=== PATIENT | male | born 1990 | race Caucasian/White ===

== ENCOUNTER 2021-07-17 21:54 | Emergency (ER) | payer MEDICAID, SELFPAY ==
[2021-07-17 21:55] VITALS: BP 136/91; PULSE 85; RESP 18; TEMP 36.7; O2SAT 97; BMI 43.8
[2021-07-17 23:53] VITALS: BP 154/66; PULSE 84; RESP 14; O2SAT 96
[2021-07-18] VITALS (14 sets, daily range): BP systolic 114–179; BP diastolic 61–93; PULSE 73–103; RESP 18–30; O2SAT 88–95
--- NOTE | 2021-07-18 00:50 | EDS_ITS ---
HPI HPI - GI History of Present Illness Chief Complaint: Foreign Body Informant: patient and parent Abdominal Pain/Flank Pain Onset: Today (Ate chicken at noon and has not been able to swallow his secretions.) Context: Sudden Onset Timing: Continuous Quality: Aching Location: Epigastric Current Severity: Mild Maximum Severity: Moderate Worsened by: Food Relieved by: Nothing Nausea/Vomiting/Emesis GI Symptom: Negative for Nausea and Vomiting Diarrhea/Melena/Hematochezia GI Symptom: Negative for Diarrhea, Melena and Hematochezia Associated Symptoms Associated Symptoms: Negative for Dysuria, Frequency and Hematuria Narrative Narrative: Patient is a 30-year-old with autism. He has prior history of esophageal obstruction due to food bolus. He was eating chicken. He has not been able to swallow his own secretions. He would not drink water to document he is unable to swallow. Mother states this happened before. He has no other complaints. History is limited because he has autism. The primary informant was the mother. Prior similar symptoms: Yes Recent Illness/Hospitalization: No PFSH PFSH Home Medications azithromycin 250 mg PO DAILY #4 tablet 05/13/15 [Rx Last Taken Unknown] omeprazole 40 mg PO DAILY #14 cap 07/18/21 [Rx Last Taken Unknown] Allergy/AdvReac Type Severity Reaction Status Date / Time amoxicillin trihydrate AdvReac Diarrhea Verified 07/17/21 21:58 [From Augmentin] potassium clavulanate AdvReac Diarrhea Verified 07/17/21 21:58 [From Augmentin] Surgical History (Updated 07/18/21 @ 00:[address] Antoni Avelar MD) History of esophagogastroduodenoscopy (EGD) History of tympanoplasty Social History (Updated 07/18/21 @ 00:[address] Antoni Avelar MD) household members: family Smoking Status: Never smoker alcohol intake: never substance use type: does not use ROS ROS ED Review of Systems ROS Unobtainable: due to mental status EXAM Physical Exam Const Vital Signs: 07/17/21 21:55 07/17/21 23:53 07/17/21 23:56 Temperature 98.0 F Temperature Source Temporal Pulse Rate 85 84 Respiratory Rate 18 14 Respiratory Effort Normal Respiratory Pattern Normal Blood Pressure 136/91 H 154/66 H Blood Pressure Mean 106 Pulse Ox 97 96 Oxygen Delivery Method Room Air Room Air Positive well nourished, well developed and obese General Appearance ED: well developed Nutritional Appearance: obese HEENT Reports TM's clear and moist mucous membranes normocephalic and atraumatic Tympanic Membrane ED: Yes TM's clear Eyes PERRL and EOMs intact bilaterally General Eye ED: Negative for pale conjunctiva or scleral icterus Neck no lymphadenopathy, supple and no JVD Neck Narrative: Trachea is midline. There is no inspiratory expiratory stridor. Resp normal respiratory effort and clear to auscultation bilaterally Cardio regular rate, regular rhythm, S1 normal heart sound, S2 normal heart sound and no murmurs GI non-tender and no masses Auscultation: normoactive bowel sounds Palpation: soft Back/Spine no CVA tenderness Extremity full ROM General Extremety ED: Negative for edema or tenderness General Extremity: Negative for edema Neuro Sensorium / Orientation: alert Psych mental status grossly normal Skin Lesions: no lesions Rashes: no rashes MDM MDM MDM Narrative Medical decision making narrative: Patient with esophageal obstruction due to meat food bolus. Dr. Jones was contacted for EGD to alleviate the obstruction. Plan was EGD by Dr. Jones and deep sedation by me. Dr. Jones is requesting intubation followed by deep sedation. He is concerned patient will fight and is not cooperative. Procedures Other Procedures Procedure(s): 1 intubation by RSI 2 deep sedation for EGD Since patient is autistic mother was informed of risk benefits of deep sedation using propofol. She consented. She states she is undergone deep sedation for prior esophageal obstruction due to meat food bolus. She states he does not have allergy to egg products or soy products. His only past medical history is autism. After discussion with endoscopist he requested intubation because patient is autistic and not cooperative. Patient was intubated after receiving 20 mils etomidate and 100 mils succinylcholine. He was placed on a nonrebreather. Lowest pulse ox reading was 98%. Patient was easily orotracheally debated with a 7.5 endotracheal tube. There is appropriate color change noted. Breath sounds were noted bilaterally. There was no sounds noted over the epigastrium. Patient required 50 mg of propofol. EGD was performed by Dr. Jones. Start time 0104 End time 0115. Patient was breathing on his own and able to control secretions when I left the room. Mother was informed of results by Dr. Jones. Patient had no complications from intubation or deep sedation. Rhythm strip noted at the beginning of procedure was sinus with a ventricular rate of 92. After the patient patient was in a normal sinus with no ectopy and ventricular rate of 97. At the end of the procedure sinus rhythm with a ventri cular rate of 94 without ectopy. Discharge Plan Triage Chief Complaint: Foreign Body ED Provider: Antoni Avelar Dx/Rx/DC Orders Clinical Impression: Esophageal obstruction due to food impaction Instructions: ED Esophageal Foreign Body, Resolved Prescriptions: New omeprazole 40 mg capsule,delayed release(DR/EC) 40 mg PO DAILY Qty: 14 RF: 0 No Action azithromycin 250 MG tablet 250 mg PO DAILY Qty: 4 RF: 0 Primary Care Provider: Montana Soliatrio Referrals: Montana Solitario MD [Primary Care Provider] - 1-2 Weeks Disposition Disposition: Home, Self Care
[2021-07-18] MEDS: Etomidate 20 MG/10 ML Vial IV (01:05)
--- NOTE | 2021-07-18 01:05 | CPS ---
Patient extubated after sedation wore off. Patient did not aspirate and was extubated with no complications.
[2021-07-18] MEDS: Propofol 200 MG/20 ML Vial IV BOLUS (01:08)
--- NOTE | 2021-07-18 01:19 | OP.EGD_ITS ---
Patient Name: Raleigh San Procedure Date: 07/18/2021 12:50 AM Date of : 1990 Age: 30 Procedure: Upper GI endoscopy Indications: Foreign body in the esophagus Providers: London Jones MD Medicines: General Anesthesia Patient Profile: This is a 30 year old male. Refer to note in patient chart for documentation of history and physical. Complications: No immediate complications. Procedure: Pre-Anesthesia Assessment: - Prior to the procedure, a History and Physical was performed, and patient medications and allergies were reviewed. The patient's tolerance of previous anesthesia was also reviewed. The risks and benefits of the procedure and the sedation options and risks were discussed with the patient. All questions were answered, and informed consent was obtained. Prior Anticoagulants: The patient has taken no previous anticoagulant or antiplatelet agents. ASA Grade Assessment: III - A patient with severe systemic disease. After reviewing the risks and benefits, the patient was deemed in satisfactory condition to undergo the procedure. After obtaining informed consent, the endoscope was passed under direct vision. Throughout the procedure, the patient's blood pressure, pulse, and oxygen saturations were monitored continuously. The gastroscope was introduced through the mouth, and advanced to the duodenal bulb. The upper GI endoscopy was accomplished without difficulty. The patient tolerated the procedure well. Scope In: 1:07:05 AM Scope Out: 1:09:11 AM Total Procedure Duration Time 0 hours 2 minutes 6 seconds Findings: Food was found in the lower third of the esophagus. Removal of food was accomplished. The entire examined stomach was normal. No biopsies or other specimens were collected for this exam. The duodenal bulb was normal. Impression: - Food in the lower third of the esophagus. Removal was successful. - Normal stomach. No specimens collected. - Normal duodenal bulb. Recommendation: - Discharge patient to home. - Advance diet as tolerated. - Continue present medications. - Repeat upper endoscopy PRN for surveillance. - Return to primary care physician in 1 week. Procedure Code(s): --- Professional --- 22703, Esophagogastroduodenoscopy, flexible, transoral; with removal of foreign body(s) Diagnosis Code(s): --- Professional --- T18.128A, Food in esophagus causing other injury, initial encounter T18.108A, Unspecified foreign body in esophagus causing other injury, initial encounter CPT copyright 2017 [employer]. All rights reserved. The codes documented in this report are preliminary and upon medical records coder review may be revised to meet current compliance requirements. MD London Faustin MD 07/18/2021 1:18:27 AM This report has been signed electronically. Number of Addenda: 0 Note Initiated On: 07/18/2021 12:50 AM
--- NOTE | 2021-07-18 01:19 | OP.CCLET_ITS ---
07/18/2021 Montana Solitario Re : Upper GI endoscopy procedure for Raleigh San Dear Altaf This procedure was performed on Sunday, July 18, 2021. My impressions and recommendations are as follows: Impressions : - Food in the lower third of the esophagus. Removal was successful. - Normal stomach. No specimens collected. - Normal duodenal bulb. Recommendations : - Discharge patient to home. - Advance diet as tolerated. - Continue present medications. - Repeat upper endoscopy PRN for surveillance. - Return to primary care physician in 1 week. My findings are described in the full procedure note, which is enclosed. If I can be of further assistance, please feel free to contact me at Doctor phone number(s): , Fax: [phone], Work: . Sincerely, MD London Faustin MD 07/18/2021 1:18:27 AM This report has been signed electronically.
--- NOTE | 2021-07-18 01:25 | ED.RN ---
patient intubated at 0105 for procedure. patient extubated at 0114 when procedure completed.
--- NOTE | 2021-07-18 05:31 | RAD_ITS ---
HISTORY: cough EXAMINATION/TECHNIQUE: XR Chest 2 Views: 3 image PA and lateral chest COMPARISON: May 13, 2015 FINDINGS: LINES/DEVICES: None. LUNGS: Large airspace consolidation within the right lower lobe No gross left lung consolidation. Mild right greater left perihilar and basilar interstitial thickening. No effusion. No pneumothorax. MEDIASTINUM: No cardiomegaly. MUSCULOSKELETAL: No acute osseous finding. RAD/Chest PA and Lateral IMPRESSION: Findings concerning for right lower lobe pneumonia. at 0723 Reported and signed by: Sj Vieira MD Electronically Signed: Sj Vieira MD at 7:21 EDT Tel , Service support ,
--- NOTE | 2021-07-18 08:07 | NURSING ---
CALLED [facility], TOLD BY EVY HE IS AN ER TO ER TRANSFER.
[2021-07-18] MEDS: Clindamycin HCl 150 MG Capsule 300 MG PO (08:12)
== END 2021-07-18 08:12 | disposition home or self-care (01) ==
PROVIDERS: Surgery; Emergency Provider Emergency Medicine; PCP Family Medicine
PROC: 0DJ08ZZ Inspection of Upper Intestinal Tract, Via Natural or Artificial Opening Endoscopic (ICD-10-PCS; CPT 43235; principal; 2021-07-18 00:25)
DX: T18.128A Food in esophagus causing other injury, initial encounter (principal); K22.2 Esophageal obstruction; X58.XXXA Exposure to other specified factors, initial encounter; Y93.9 Activity, unspecified; Y92.9 Unspecified place or not applicable; Y99.9 Unspecified external cause status; F84.0 Autistic disorder; E66.9 Obesity, unspecified; Z79.899 Other long term (current) drug therapy
CPT/HCPCS: 43247; 31500; 71046; 99251; 99285; J7030; A4216; G0463

== ENCOUNTER 2023-01-21 14:02 | Emergency (ER) | payer MEDICAID, SELFPAY ==
[2023-01-21 14:04] VITALS: BP 154/81; PULSE 88; RESP 18; TEMP 35.8; O2SAT 98; BMI 45.4
--- NOTE | 2023-01-21 15:44 | ED.VIS.GI ---
HPI HPI - GI History of Present Illness Chief Complaint: Nausea/Vomiting Informant: patient and parent Nausea/Vomiting/Emesis GI Symptom: Positive for Nausea and Vomiting Quality: Positive for Nonbilious Severity: Mild Episodes: 1 Diarrhea/Melena/Hematochezia GI Symptom: Negative for Diarrhea, Melena or Hematochezia Associated Symptoms Associated Symptoms: Negative for Dysuria, Frequency, Hematuria or Urgency Narrative Narrative: 32-year-old autistic male no other significant past medical history. No prior abdominal surgeries. Mom he threw up 1 time today at workshop. Otherwise he is felt well. No fever. No diarrhea. No abdominal pain. Patient states his symptoms have resolved and he feels fine currently. The workshop setting to the urgent care in the urgent care center in the emergency department. States at times he has trouble with food textures and he has nausea and vomiting. Prior similar symptoms: Yes Recent Illness/Hospitalization: No PFSH PFSH Home Medications azithromycin 250 mg tablet 250 mg PO DAILY ##4 05/13/15 [Rx Last Taken Unknown] clindamycin HCl 300 mg capsule (Cleocin HCl) 300 mg PO Q6H #40 caps 07/18/21 [Rx Last Taken Unknown] omeprazole 40 mg capsule,delayed release 40 mg PO DAILY #14 caps 07/18/21 [Rx Last Taken Unknown] Allergy/AdvReac Type Severity Reaction Status Date / Time amoxicillin trihydrate AdvReac Diarrhea Verified 01/21/23 14:03 [From Augmentin] potassium clavulanate AdvReac Diarrhea Verified 01/21/23 14:03 [From Augmentin] Surgical History History of esophagogastroduodenoscopy (EGD) History of tympanoplasty Social History household members: family Smoking Status: Never smoker alcohol intake: never substance use type: does not use ROS ROS ED ROS Narrative Nausea and vomiting x1. Review of Systems ROS Unobtainable: Denies due to encephalopathy Constitutional Constitutional ED: Denies chills or fever(s) ENT ENT ED: Denies ear pain Cardiovascular Cardiovascular: Denies chest pain Respiratory/Chest Respiratory/Chest: Denies cough or dyspnea Gastrointestinal Gastrointestinal: Reports nausea and vomiting; Denies abdominal pain, constipation, diarrhea or melena Genitourinary Genitourinary ED: Denies dysuria or hematuria Musculoskeletal Musculoskeletal: Denies arthralgias Integumentary Denies abscess Neurologic Neurologic: Denies headache(s) Psychiatric Psychiatric: Denies anxiety Endocrine Endocrinology: Denies polydipsia Hematologic/Lymphatic Hematologic/Lymphatic: Denies easy bleeding Allergic/Immunologic Allergic/Immunologic ED: Denies mouth swelling or tongue swelling EXAM Physical Exam Narrative Exam Narrative: 32-year-old male no acute distress. Vital signs are stable afebrile. Initial blood pressure 151/81. H EENT exam unremarkable. Moist weeks membranes. Neck nontender. No lymphadenopathy. Lungs clear to auscultation bilaterally. Heart regular rhythm rate about 85 no murmur. Chest wall nontender. Abdomen soft nontender. No peritoneal signs. No right upper or right lower quadrant tenderness. No signs of obstruction. Normal bowel sounds. Moving all 4 extremities. Nontender. No edema. Back nontender. Neurologically is awake and alert. No focal motor deficits. Mom present in the room. Const Vital Signs: 01/21/23 14:04 Temperature 96.5 F L Temperature Source Temporal Pulse Rate 88 Respiratory Rate 18 Blood Pressure 154/81 H Blood Pressure Mean 105 Pulse Ox 98 Oxygen Delivery Method Room Air Positive well nourished, well developed and obese; Negative for cachectic, contractures or unkempt General Appearance ED: well developed; Negative for unkempt, cachectic, contractures or pallor Nutritional Appearance: obese; Negative for cachectic HEENT Reports moist mucous membranes normocephalic and atraumatic; Negative for trauma or tenderness Eyes PERRL and EOMs intact bilaterally General Eye ED: Negative for pale conjunctiva, scleral icterus or other Neck no lymphadenopathy, supple and no JVD General: Negative for tenderness Carotids: Negative for other Lymph Lymphatic: Negative for other Resp normal respiratory effort and clear to auscultation bilaterally Effort and Inspection: Negative for respiratory distress Auscultation: Negative for rales, rhonchi or wheezes Cardio regular rate, regular rhythm, S1 normal heart sound, S2 normal heart sound and no murmurs GI non-tender, non-distended and no masses Inspection: Negative for abdominal distention Auscultation: normoactive bowel sounds Palpation: soft; Negative for tender or guarding Back/Spine no CVA tenderness General Back: Negative for CVA tenderness Cervical Spine: Negative for cervical spine tenderness Thoracic Spine / Upper Back: Negative for thoracic spinal tenderness Lumbar Spine / Lower Back: Negative for lumbar spinal tenderness Extremity full ROM General Extremety ED: Negative for edema or tenderness General Extremity: Negative for edema Neuro CN's II-XII intact bilaterally and moves all extremities Sensorium / Orientation: alert, oriented to person and oriented to place; Negative for confused, lethargic or stuporous Motor Exam: strength 5/5 throughout Psych mental status grossly normal Appearance: Negative for unkempt Attitude: No agitated Mood & Affect: Negative for depressed, anxious or tearful Skin no wounds General Skin Exam: Negative for jaundice or pallor Lesions: no lesions Rashes: no rashes Trauma: Negative for abrasion Nails: Negative for discolored MDM MDM MDM Narrative Medical decision making narrative: 32-year-old to stick male had nausea and vomiting times once at workshop today. He has no complaints at this time. His abdomen is benign. His nausea is resolved. He does not need any lab work-up or imaging. Clinically looks well. He will be discharged home with 1 dose of Zofran as needed for nausea. He may return to [facility] tomorrow. Discharge Plan Triage Chief Complaint: Nausea/Vomiting ED Provider: Evert Yepez Dx/Rx/DC Orders Clinical Impression: Autism, Vomiting Instructions: ED Vomiting (Adult) Prescriptions: No Action azithromycin 250 MG tablet 250 mg PO DAILY Qty: 4 0RF omeprazole 40 mg capsule,delayed release(DR/EC) 40 mg PO DAILY Qty: 14 0RF clindamycin HCl [Cleocin HCl] 300 mg capsule 300 mg PO Q6H Qty: 40 0RF Primary Care Provider: Montana Solitario Referrals: Cisco Nguyen DO [Med Staff - [employer]] - As Needed Montana Solitario MD [Primary Care Provider] - Activity Restrictions/Additional Instructions: Zofran only if needed if he gets nauseated. Follow-up with your doctor as needed. He may go back to [facility] tomorrow. Disposition Disposition: Home, Self Care
[2023-01-21] MEDS: Ondansetron ODT 4 MG Tablet PO (15:54)
[2023-01-21 15:56] VITALS: BP 135/72; PULSE 64; RESP 18; O2SAT 98
== END 2023-01-21 15:57 | disposition home or self-care (01) ==
LOC: ED 15:45
PROVIDERS: Emergency Provider Emergency Medicine; Visit Provider Emergency Medicine
DX: R11.2 Nausea with vomiting, unspecified (principal); F84.0 Autistic disorder; E66.9 Obesity, unspecified
CPT/HCPCS: 99283

== ENCOUNTER 2024-02-21 03:15 | Day surgery (SDC) | payer MEDICAID, SELFPAY ==
[2024-02-21] VITALS (11 sets, daily range): BP systolic 133–172; BP diastolic 86–112; PULSE 78–116; RESP 16–18; TEMP 35.8–36.8; O2SAT 96–100; BMI 45.3
--- NOTE | 2024-02-21 | ESO_PTH ---
PATIENT: THOMAS SANFORD LOC: EN U#:[id number] AGE/SX: 33/M ROOM: RE02/21/[address]: Dr. Jamel Richey DO : 1990 BED: DIS: 02/21/2024 SPEC #: [id number] RECD: 02/21/24 11:41 STATUS: ZOEY VALARIE #: [id number] HAYDEE: 02/21/24 00:[address]: Jamel Richey DEPT: SURGICAL PATHOLOGY RECD BY: Luisito Ruvalcaba ENTERED: 02/21/24 11:41 SP TYPE: BERNABE BRENNER DR: Abril Primary Care Phys Tissues: Esophagus, NOS Procedures: Surgery Specimen Level IV HEADER OPERATION: EGD with removal of food bolus and biopsy PRE-OP DIAGNOSIS: Food impaction TISSUE SUBMITTED: Random esophagus biopsy MICROSCOPIC DIAGNOSIS Esophagus random, biopsy: Fragments of squamous mucosa with changes consistent with eosinophilic esophagitis. See comment. DENISE/mr 02/24/24 COMMENT Increased number of eosinophils (up to 20 per high power field) are noted. Correlation with clinical, endoscopic findings and appropriate follow up are necessary. MICROSCOPIC DESCRIPTION Slides are reviewed. GROSS DESCRIPTION Received in fixative is one container labeled with the patient's name and designated Random esophagus biopsy. The specimen consists of multiple irregular fragments of light hampton soft tissue that in aggregate measure 1.2 x 0.3 x 0.1 cm. The specimen is totally submitted in one cassette. DENISE/ 02/21/2024 TC:3 CPT: 03697
--- NOTE | 2024-02-21 03:34 | EDS_ITS ---
HPI History of Present Illness Chief Complaint: Foreign Body Informant: patient and parent Narrative Narrative: Patient presents with his mother secondary to concern for esophageal food obstruction. Patient reportedly was eating [place] fries around 11 PM last jazmin magan. Mother states he suddenly had a difficult time swallowing anything. When he tries to sip water he will vomit back up. He has been tolerating secretions okay. He did have an EGD performed in 2020 secondary to a food impaction in the distal third of his esophagus. [facility] Medical History Autism Home Medications NK 02/21/24 [History Last Taken Unknown] Allergy/AdvReac Type Severity Reaction Status Date / Time amoxicillin trihydrate AdvReac Diarrhea Verified 02/21/24 03:16 [From Augmentin] potassium clavulanate AdvReac Diarrhea Verified 02/21/24 03:16 [From Augmentin] Surgical History History of esophagogastroduodenoscopy (EGD) History of tympanoplasty Social History household members: family Smoking Status: Never smoker alcohol intake: never substance use type: does not use ROS ROS ED Constitutional Constitutional ED: Denies chills or fever(s) Eyes Eyes: Denies discharge from eye(s) ENT ENT ED: Denies discharge from eye(s), rhinorrhea or sore throat Cardiovascular Cardiovascular: Denies chest pain Respiratory/Chest Respiratory/Chest: Denies dyspnea Gastrointestinal Gastrointestinal: Reports vomiting; Denies abdominal pain, diarrhea or nausea Musculoskeletal Musculoskeletal: Denies back pain or extremity pain Integumentary Denies Abrasions or rash Neurologic Neurologic: Denies headache(s) or weakness Allergic/Immunologic Allergic/Immunologic ED: Denies lip swelling or urticaria EXAM Physical Exam Const Vital Signs: 02/21/24 03:17 02/21/24 03:21 Temperature 96.4 F L Temperature Source Temporal Pulse Rate 78 Respiratory Rate 16 Respiratory Effort Normal Respiratory Pattern Normal Blood Pressure 148/87 H Blood Pressure Mean 107 Pulse Ox 99 Oxygen Delivery Method Room Air Positive well nourished and well developed General Appearance ED: well developed HEENT Reports moist mucous membranes Eyes EOMs intact bilaterally Chest Wall inspection of chest normal and palpation of chest normal Resp normal respiratory effort and clear to auscultation bilaterally Cardio regular rate and regular rhythm GI non-tender Auscultation: hypoactive bowel sounds Palpation: soft Extremity normal to inspection Neuro Sensorium / Orientation: alert Motor Exam: strength 5/5 throughout Skin no rashes or lesions noted MDM MDM MDM Narrative Medical decision making narrative: IV line initiated. Patient given 1 mg of IV glucagon. After approximately 30 minutes I took the patient a small glass of water. After just a couple sips he vomited back up and was unable to keep anything down. I spoke with Dr. Richey, on-call for GI who will be in to see the patient with plan to go for EGD. Discharge Plan Triage Chief Complaint: Foreign Body ED Provider: Anny Santos Dx/Rx/DC Orders Clinical Impression: Food impaction of esophagus Prescriptions: No Action NK Primary Care Provider: Care Physician,No Primary Referrals: Care Physician,No Primary [Primary Care Provider] - Disposition Disposition: Acute Care Hospital [facility]
[2024-02-21] MEDS: Glucagon 1 MG/ML Syringe IV (03:35)
[2024-02-21] MEDS: 0.9% Normal Saline (1000mL) 1,000 ML 15 ML IV (06:15)
--- NOTE | 2024-02-21 07:15 | PCM.HP.STD ---
[facility] - General General Date of Admission: 02/21/24 Date of Service: 02/21/24 Chief Complaint: Food impaction HPI Narrative THOMAS SANFORD, is a 33 M who presents with inability to swallow. Patient presents with his mother secondary to concern for esophageal food obstruction. Patient reportedly was eating Arabic fries around 11 PM last evening. Mother states he suddenly had a difficult time swallowing anything. When he tries to sip water he will vomit back up. He has been tolerating secretions okay. He did have an EGD performed in 2020 secondary to a food impaction in the distal third of his esophagus. [facility] Medical History Autism Home Medications NK 02/21/24 [History Last Taken Unknown] Allergy/AdvReac Type Severity Reaction Status Date / Time amoxicillin trihydrate AdvReac Diarrhea Verified 02/21/24 06:59 [From Augmentin] potassium clavulanate AdvReac Diarrhea Verified 02/21/24 06:59 [From Augmentin] Surgical History History of esophagogastroduodenoscopy (EGD) History of tympanoplasty Social History household members: family Smoking Status: Never smoker alcohol intake: never substance use type: does not use ROS Review of Systems ROS Unobtainable: other Constitutional Constitutional: Reports other Details: Dysphagia ; Denies fatigue, fever(s), poor appetite, weight gain or weight loss ENT HEENT: Denies mouth lesions Cardiovascular Cardiovascular: Denies abdominal bloating, abdominal edema or abdominal pain Respiratory/Chest Respiratory/Chest: Denies change in mental status, change in phlegm color, chest congestion or chest tightness Gastrointestinal Gastrointestinal: Denies belching, bloating, change in bowel habits, change in stool character, chewing difficulty, coffee ground emesis, constipation, cramping, diarrhea, dyspepsia, dysphagia, early satiety, excessive flatus, fecal incontinence, heartburn, hematemesis, hematochezia, hemorrhoids, loose stools, melena, nausea, odynophagia, rectal bleeding, tenesmus, vomiting or weight changes Genitourinary Genitourinary: Denies abdominal discomfort, burning urination or itching Musculoskeletal Musculoskeletal: Reports as per HPI; Denies muscle weakness or myalgias Integumentary Integumentary: Denies jaundice Neurologic Neurologic: Denies lack of coordination or weakness Psychiatric Psychiatric: Denies confusion, depression, memory loss, mood swings, paranoia or suicidal ideation Endocrine Endocrinology: Denies systems reviewed and no addt'l complaints, except as documented Hematologic/Lymphatic Hematologic/Lymphatic: Denies anemia, easy bleeding, easy bruising or lymphadenopathy Allergic/Immunologic Allergic/Immunologic: Denies systems reviewed and no addt'l complaints, except as documented Vital Signs Vital Signs Vital Signs: 02/21/24 03:17 02/21/24 03:21 02/21/24 04:30 Temperature 96.4 F L Temperature Source Temporal Pulse Rate 78 86 Respiratory Rate 16 16 Respiratory Effort Normal Respiratory Pattern Normal Blood Pressure 148/87 H 133/96 H Blood Pressure Mean 107 108 Blood Pressure Source Blood Pressure Position Blood Pressure Location Pulse Ox 99 98 Oxygen Delivery Method Room Air Room Air 02/21/24 04:31 02/21/24 05:00 02/21/24 06:12 Temperature 98.2 F 97.4 F L Temperature Source Temporal Temporal Pulse Rate 89 79 86 Respiratory Rate 18 16 Respiratory Effort Respiratory Pattern Blood Pressure 133/96 H 134/89 H 136/86 H Blood Pressure Mean 108 104 102 Blood Pressure Source Monitor Blood Pressure Position Supine Blood Pressure Location Left Arm Pulse Ox 98 96 98 Oxygen Delivery Method Room Air Room Air Room Air 02/21/24 06:12 Temperature 97.8 F Temperature Source Pulse Rate 86 Respiratory Rate 16 Respiratory Effort Respiratory Pattern Blood Pressure 136/86 H Blood Pressure Mean 102 Blood Pressure Source Blood Pressure Position Blood Pressure Location Pulse Ox 98 Oxygen Delivery Method Weight Weight: 289 lb 3.944 oz Body Mass Index (BMI) 45.3 Physical Exam Const alert General Appearance: cooperative Orientation / Consciousness: oriented to person HEENT hearing grossly normal bilaterally Head and Scalp: normal to inspection Face and Sinus: face symmetric Nose: external nose normal Mouth: oral and palatal mucosa normal Eyes conjunctivae normal General Eye: normal appearance of both eyes Neck full ROM General: normal visual inspection Lymph Lymphatic: no lymphadenopathy noted Chest inspection of chest normal and palpation of chest normal Chest: symmetrical chest wall rise Resp normal respiratory effort Effort and Inspection: able to speak in complete sentences Cardio regular rate GI non-distended Percussion: normal to percussion Rectal Exam: deferred Neuro Speech: speech normal Gait (Neuro): normal gait Assessment & Plan Assessment/Plan (1) Food impaction of esophagus: PLAN: Patient will undergo EGD with foreign body removal. He was explained alternatives, risk, benefits including not withstanding bleeding, infection, sepsis, perforation, need for emergent urgent . Have an ASA of 2.
--- NOTE | 2024-02-21 07:38 | OP.EGD_ITS ---
Patient Name: Raleigh San Procedure Date: 02/21/2024 7:11 AM Date of : 1990 Age: 33 Procedure: Upper GI endoscopy Indications: Dysphagia Providers: Jamel Richey DO Medicines: Monitored Anesthesia Care Patient Profile: This is a 33 year old male. Refer to note in patient chart for documentation of history and physical. Patient has symptoms of dysphagia with both liquids and solids. Complications: No immediate complications. Procedure: Pre-Anesthesia Assessment: - Prior to the procedure, a History and Physical was performed, and patient medications and allergies were reviewed. The patient is competent. The risks and benefits of the procedure and the sedation options and risks were discussed with the patient. All questions were answered and informed consent was obtained. Patient identification and proposed procedure were verified by the physician in the pre-procedure area. Mental Status Examination: alert and oriented. Airway Examination: normal oropharyngeal airway and neck mobility. Respiratory Examination: clear to auscultation. CV Examination: normal. Prophylactic Antibiotics: The patient does not require prophylactic antibiotics. Prior Anticoagulants: The patient has taken no anticoagulant or antiplatelet agents. ASA Grade Assessment: II - A patient with mild systemic disease. After reviewing the risks and benefits, the patient was deemed in satisfactory condition to undergo the procedure. The anesthesia plan was to use monitored anesthesia care (MAC). Immediately prior to administration of medications, the patient was re-assessed for adequacy to receive sedatives. The heart rate, respiratory rate, oxygen saturations, blood pressure, adequacy of pulmonary ventilation, and response to care were monitored throughout the procedure. The physical status of the patient was re-assessed after the procedure. After obtaining informed consent, the endoscope was passed under direct vision. Throughout the procedure, the patient's blood pressure, pulse, and oxygen saturations were monitored continuously. The gastroscope was introduced through the mouth, and advanced to the duodenal bulb. The upper GI endoscopy was accomplished without difficulty. The patient tolerated the procedure well. Scope In: 7:26:19 AM Scope Out: 7:30:14 AM Total Procedure Duration Time 0 hours 3 minutes 55 seconds Findings: Mucosal changes including ringed esophagus, feline appearance, longitudinal furrows, small-caliber esophagus and white plaques were found in the entire esophagus. Esophageal findings were graded using the Eosinophilic Esophagitis Endoscopic Reference Score (EoE-EREFS) as: Edema Grade 1 Present (decreased clarity or absence of vascular markings), Rings Grade 3 Severe (distinct rings that do not permit passage of diagnostic 8-10 mm endoscope), Exudates Grade 1 Mild (scattered white lesions involving less than 10 percent of the esophageal surface area), Furrows Grade 1 Mild (vertical lines without visible depth) and Stricture present. Biopsies were obtained from the proximal and distal esophagus with cold forceps for histology of suspected eosinophilic esophagitis. Verification of patient identification for the specimen was done. Estimated blood loss was minimal. Food was found in the lower third of the esophagus, 39 cm from the incisors. Removal was accomplished with a Mir[place]ont[place] net. Verification of patient identification for the specimen was done. A small hiatal hernia was present. The exam of the stomach was otherwise normal. The duodenal bulb was normal. Impression: - Esophageal mucosal changes consistent with eosinophilic esophagitis. - Food was found in the esophagus. Removal was successful. - Small hiatal hernia. - Normal duodenal bulb. - Biopsies were taken with a cold forceps for evaluation of eosinophilic esophagitis. Recommendation: - Await pathology results. - Repeat upper endoscopy in 2 weeks for retreatment. - Use Protonix (pantoprazole) 40 mg PO BID for 1 year. -Prednisolone 10 mL twice a day x 2 weeks - Continue present medications. - Liquid diet until he has repeat upper endoscopy Procedure Code(s): --- Professional --- 40795, Esophagogastroduodenoscopy, flexible, transoral; with removal of foreign body(s) 51885, Esophagogastroduodenoscopy, flexible, transoral; with biopsy, single or multiple CPT copyright 2021 [employer]. All rights reserved. The codes documented in this report are preliminary and upon certified medical coder review may be revised to meet current compliance requirements. Jamel Richey DO 02/21/2024 7:38:26 AM This report has been signed electronically. Number of Addenda: 0 Note Initiated On: 02/21/2024 7:11 AM
--- NOTE | 2024-02-21 07:38 | OP.CCLET_ITS ---
02/21/2024 No Primary Care Physician Re : Upper GI endoscopy procedure for Raleigh San Dear Care Physician This procedure was performed on Wednesday, February 21, 2024. My impressions and recommendations are as follows: Impressions : - Esophageal mucosal changes consistent with eosinophilic esophagitis. - Food was found in the esophagus. Removal was successful. - Small hiatal hernia. - Normal duodenal bulb. - Biopsies were taken with a cold forceps for evaluation of eosinophilic esophagitis. Recommendations : - Await pathology results. - Repeat upper endoscopy in 2 weeks for retreatment. - Use Protonix (pantoprazole) 40 mg PO BID for 1 year. -Prednisolone 10 mL twice a day x 2 weeks - Continue present medications. - Liquid diet until he has repeat upper endoscopy My findings are described in the full procedure note, which is enclosed. If I can be of further assistance, please feel free to contact me at . Sincerely, Jamel Friend, 02/21/2024 7:38:26 AM This report has been signed electronically.
--- NOTE | 2024-02-21 07:53 | SUR.PHASEI ---
PATIENT TALKING AND MOVING ARMS CONTINUOUSLY WHILE TAKING BP'S. Hx AUTISM. ATTEMPTING TO REDIRECT.
[2024-02-21] MEDS: Pantoprazole Sodium 40 MG in 0.9% Normal Saline (100mL MB+) 100 ML 330 MG IV (07:59)
== END 2024-02-21 08:43 | disposition home or self-care (01) ==
LOC: ED 06:49 → EN 06:51 → ACINP 06:52
PROVIDERS: Emergency Provider Emergency Medicine; Referring Provider Internal Medicine Gastroenterology; Visit Provider Internal Medicine Gastroenterology
PROC: 0DJ08ZZ Inspection of Upper Intestinal Tract, Via Natural or Artificial Opening Endoscopic (ICD-10-PCS; CPT 43235; principal; 2024-02-21 09:10)
DX: T18.128A Food in esophagus causing other injury, initial encounter (principal); K44.9 Diaphragmatic hernia without obstruction or gangrene; Z79.899 Other long term (current) drug therapy; W44.F3XA Food entering into or through a natural orifice, initial encounter; F84.0 Autistic disorder
CPT/HCPCS: 43247; 43239; 88305; 99284; J7030; A4216; J1610; J2405

== ENCOUNTER 2024-03-12 08:40 | Day surgery (SDC) | payer MEDICARE, MEDICAID, SELFPAY ==
--- NOTE | 2024-03-12 | ESO_PTH ---
PATIENT: THOMAS SANFORD LOC: EN U#:[id number] AGE/SX: 33/M ROOM: RE03/12/[address]: Dr. Jamel Richey DO : 1990 BED: DIS: 03/12/2024 SPEC #: [id number] RECD: 03/12/24 12:51 STATUS: ZOEY REAbdias #: [id number] HAYDEE: 03/12/24 00:[address]: Jamel Richey DEPT: SURGICAL PATHOLOGY RECD BY: Luisito Ruvalcaba ENTERED: 03/12/24 12:51 SP TYPE: BERNABE BRENNER DR: Dr. Cisco Nguyen DO Tissues: Esophagus, NOS Procedures: Special Stain Group II Surgery Specimen Level IV Alcian Blue/PAS (control) HEADER OPERATION: EGD with biopsy and dilation PRE-OP DIAGNOSIS: History of food impaction of esophagus TISSUE SUBMITTED: Distal esophagus biopsy MICROSCOPIC DIAGNOSIS Distal esophagus, biopsy: Gastroesophageal junctional mucosa with reflux esophagitis. No evidence of goblet cell metaplasia. See comment. / 03/13/2024 COMMENT Alcian blue/PAS stain with matched control supports the above diagnosis. MICROSCOPIC DESCRIPTION Slides are reviewed. GROSS DESCRIPTION Received in fixative is one container labeled with the patient's name and designated Distal esophagus biopsy. The specimen consists of multiple irregular fragments of light hampton soft tissue that in aggregate measure 2.0 x 0.5 x 0.1 cm. The specimen is totally submitted in one cassette. / 03/12/2024 TC:3 CPT:55878,89926
[2024-03-12 09:17] VITALS: BP 140/94; PULSE 98; RESP 16; TEMP 36.6; O2SAT 98; BMI 43.8
[2024-03-12] MEDS: Lactated Ringers 1,000 ML 15 ML IV (09:22)
--- NOTE | 2024-03-12 09:41 | HP.PCM_ITS ---
HPI - General HPI Narrative THOMAS SANFORD, is a 33 M who presents COUNTS INCLUDE 234 BEDS AT THE [facility] Medical History (Updated 03/09/24 @ 10:08 by Charlene Bonilla) Autism Food impaction of esophagus Loss of hearing Home Medications pantoprazole 40 mg tablet,delayed release 40 mg PO DAILY #60 tabs 02/21/24 [Rx Last Taken 03/11/24] prednisolone 15 mg/5 mL oral solution 30 mg (10 mL) PO BID 1 month #600 mL 02/21/24 [Rx Last Taken 03/11/24] Allergy/AdvReac Type Severity Reaction Status Date / Time amoxicillin trihydrate AdvReac Diarrhea Verified 03/12/24 09:16 [From Augmentin] potassium clavulanate AdvReac Diarrhea Verified 03/12/24 09:16 [From Augmentin] Surgical History (Updated 03/09/24 @ 10:08 by Charlene Bonilla) History of esophagogastroduodenoscopy (EGD) History of tympanoplasty Social History household members: family Smoking Status: Never smoker alcohol intake: never substance use type: does not use Vital Signs Vital Signs Vital Signs: 03/12/24 09:17 03/12/24 09:17 Temperature 98 F Temperature Source Temporal Pulse Rate 98 Respiratory Rate 16 Respiratory Pattern Normal Blood Pressure 140/94 H Blood Pressure Mean 109 Blood Pressure Source Monitor Blood Pressure Position Semi-Fowlers Blood Pressure Location Right Arm Pulse Ox 98 Oxygen Delivery Method Room Air Weight Weight: 279 lb 15.793 oz Body Mass Index (BMI) 43.8 Physical Exam Const alert General Appearance: cooperative Orientation / Consciousness: oriented to person HEENT hearing grossly normal bilaterally Head and Scalp: normal to inspection Face and Sinus: face symmetric Nose: external nose normal Mouth: oral and palatal mucosa normal Eyes conjunctivae normal General Eye: normal appearance of both eyes Neck full ROM General: normal visual inspection Lymph Lymphatic: no lymphadenopathy noted Chest inspection of chest normal and palpation of chest normal Chest: symmetrical chest wall rise Resp normal respiratory effort Effort and Inspection: able to speak in complete sentences Cardio regular rate GI non-distended Percussion: normal to percussion Rectal Exam: deferred Neuro Speech: speech normal Gait (Neuro): normal gait Assessment & Plan Assessment/Plan (1) Food impaction of esophagus: PLAN: Plan He will undergo evaluation of his upper GI tract. He was explained alternatives, risk, benefits including outstanding bleeding, infection, sepsis, perforation, need emergent and . He will have an ASA of 3.
[2024-03-12 10:03] VITALS: BP 140/94; BP 144/78; PULSE 104; RESP 16; TEMP 36.6; O2SAT 93
[2024-03-12 10:05] VITALS: BP 120/79; BP 140/94; PULSE 93; RESP 16; O2SAT 96
--- NOTE | 2024-03-12 10:07 | OP.EGD_ITS ---
Patient Name: Raleigh San Procedure Date: 03/12/2024 9:41 AM Date of : 1990 Age: 33 Procedure: Upper GI endoscopy Indications: Dysphagia Providers: Jamel Richey DO Referring MD: Cisco Nguyen Medicines: Monitored Anesthesia Care Patient Profile: This is a 33 year old male. Refer to note in patient chart for documentation of history and physical. Patient has symptoms of dysphagia with both liquids and solids. His most recent EGD for foreign body removal. Complications: No immediate complications. Procedure: Pre-Anesthesia Assessment: - Prior to the procedure, a History and Physical was performed, and patient medications and allergies were reviewed. The patient is competent. The risks and benefits of the procedure and the sedation options and risks were discussed with the patient. All questions were answered and informed consent was obtained. Patient identification and proposed procedure were verified by the physician. Mental Status Examination: normal. CV Examination: normal. Prophylactic Antibiotics: The patient does not require prophylactic antibiotics. Prior Anticoagulants: The patient has taken no anticoagulant or antiplatelet agents. ASA Grade Assessment: II - A patient with mild systemic disease. After reviewing the risks and benefits, the patient was deemed in satisfactory condition to undergo the procedure. The anesthesia plan was to use monitored anesthesia care (MAC). Immediately prior to administration of medications, the patient was re-assessed for adequacy to receive sedatives. The heart rate, respiratory rate, oxygen saturations, blood pressure, adequacy of pulmonary ventilation, and response to care were monitored throughout the procedure. The physical status of the patient was re-assessed after the procedure. After obtaining informed consent, the endoscope was passed under direct vision. Throughout the procedure, the patient's blood pressure, pulse, and oxygen saturations were monitored continuously. The gastroscope was introduced through the mouth, and advanced to the second part of duodenum. The upper GI endoscopy was accomplished without difficulty. The patient tolerated the procedure well. Scope In: 9:48:51 AM Scope Out: 9:57:21 AM Total Procedure Duration Time 0 hours 8 minutes 30 seconds Findings: Mucosal changes including ringed esophagus, feline appearance, longitudinal furrows, small-caliber esophagus and white plaques were found in the entire esophagus. Esophageal findings were graded using the Eosinophilic Esophagitis Endoscopic Reference Score (EoE-EREFS) as: Rings Grade 3 Severe (distinct rings that do not permit passage of diagnostic 8-10 mm endoscope), Exudates Grade 2 Severe (scattered white lesions involving 10 percent or greater of the esophageal surface area), Furrows Grade 1 Mild (vertical lines without visible depth) and Stricture present. Biopsies were obtained from the proximal and distal esophagus with cold forceps for histology of suspected eosinophilic esophagitis. Verification of patient identification for the specimen was done. Estimated blood loss was minimal. Two benign-appearing, intrinsic severe (stenosis; an endoscope cannot pass) stenoses were found 38 to 40 cm from the incisors. The stenoses were traversed after dilation. A guidewire was placed and the scope was withdrawn. Dilation was performed with a Savary dilator with no resistance at 45 Fr. The dilation site was examined and showed moderate mucosal disruption. The entire examined stomach was normal. No gross lesions were noted in the duodenal bulb. Impression: - Esophageal mucosal changes consistent with eosinophilic esophagitis. - Benign-appearing esophageal stenoses. Dilated. - Normal stomach. - No gross lesions in the duodenal bulb. - Biopsies were taken with a cold forceps for evaluation of eosinophilic esophagitis. Recommendation: - Discharge patient to home. - Clear liquid diet today. - Continue present medications. Procedure Code(s): --- Professional --- 99708, Esophagogastroduodenoscopy, flexible, transoral; with insertion of guide wire followed by passage of dilator(s) through esophagus over guide wire 10154, 59,51, Esophagogastroduodenoscopy, flexible, transoral; with biopsy, single or multiple CPT copyright 2021 [employer]. All rights reserved. The codes documented in this report are preliminary and upon residential electrician review may be revised to meet current compliance requirements. Jamel Richey DO 03/12/2024 10:07:37 AM This report has been signed electronically. Number of Addenda: 0 Note Initiated On: 03/12/2024 9:41 AM
--- NOTE | 2024-03-12 10:07 | OP.CCLET_ITS ---
03/12/2024 Cisco Nguyen [address] [place] [address] Re : Upper GI endoscopy procedure for Raleigh San Dear Dr. Nguyen This procedure was performed on February. My impressions and recommendations are as follows: Impressions : - Esophageal mucosal changes consistent with eosinophilic esophagitis. - Benign-appearing esophageal stenoses. Dilated. - Normal stomach. - No gross lesions in the duodenal bulb. - Biopsies were taken with a cold forceps for evaluation of eosinophilic esophagitis. Recommendations : - Discharge patient to home. - Clear liquid diet today. - Continue present medications. My findings are described in the full procedure note, which is enclosed. If I can be of further assistance, please feel free to contact me at . Sincerely, Jamel Richey, 03/12/2024 10:07:37 AM This report has been signed electronically.
[2024-03-12 10:10] VITALS: BP 121/79; BP 140/94; PULSE 95; RESP 16; O2SAT 95
[2024-03-12 10:13] VITALS: BP 127/93; BP 140/94; PULSE 93; RESP 16; TEMP 36.3; O2SAT 94
== END 2024-03-12 10:45 | disposition home or self-care (01) ==
LOC: EN 08:43 → AC 08:44
PROVIDERS: PCP Family Medicine; Referring Provider Family Medicine; Visit Provider Internal Medicine Gastroenterology
PROC: 0DJ08ZZ Inspection of Upper Intestinal Tract, Via Natural or Artificial Opening Endoscopic (ICD-10-PCS; CPT 43235; principal; 2024-03-12 09:25)
DX: K22.2 Esophageal obstruction (principal); K21.00 Gastro-esophageal reflux disease with esophagitis, without bleeding; Z79.899 Other long term (current) drug therapy
CPT/HCPCS: 43248; 43239; 88305; 88313; J7120; C1769; J2405